=== PATIENT | female | born 1990 | race Caucasian/White ===

== ENCOUNTER → 2022-12-25 13:06 | Outpatient (CLI) | payer BC, SELFPAY ==
--- NOTE | ~2022-12-25 | US_ITS ---
US thyroid INDICATION: Thyroid disorder. TECHNIQUE: Real-time sonographic images of the thyroid gland were obtained. COMPARISON: No prior studies for comparison. FINDINGS: The right thyroid lobe measures 5.5 x 1.7 x 1.5 cm. The left thyroid lobe measures 4.5 x 1 .4 x 1.6 cm. There is normal echotexture and echogenicity throughout the thyroid gland. No discrete n odules identified. Normal vascular flow is present. IMPRESSION: 1. Normal thyroid without discrete nodule or abnormal vascularity. Reviewed, dictated and finalized at location []
== END ==
PROVIDERS: PCP Nurse Practitioner Family; Visit Provider Nurse Practitioner Family
DX: E07.9 Disorder of thyroid, unspecified (principal)
CPT/HCPCS: 76536

== ENCOUNTER 2023-06-22 10:03 | Outpatient (CLI) | payer BC, SELFPAY ==
--- NOTE | ~2023-06-22 | MMUS_ITS ---
EXAMINATION: MM diagnostic alyssa BI w chiquita, US breast RT limited HISTORY: Palpable right breast lump TECHNIQUE: Additional 3-D tomosynthesis images of the breasts were performed and synthetic 2-D images were generated. CAD analysis was submitted and interpreted. High resolution Limited right breast ult rasound was performed. COMPARISON: None BREAST PARENCHYMAL COMPOSITION: Breast composed of scattered areas of fibroglandular density FINDINGS: MAMMOGRAPHIC FINDINGS: There are no suspicious masses, calcifications or architectural distortion in either breast to sugges t malignancy. ULTRASOUND: Limited right breast ultrasound: Normal heterogeneous echotexture without focal solid or cystic mass. IMPRESSION: 1. No evidence for malignancy in either breast. 2. Routine yearly screening mammogram and regular clinical breast examination are recommended. BI-RADS Category 1: Negative Reviewed, dictated and finalized at location A. GER PROCESS IMPROVEMENT IMPRESSION: 1. No evidence for malignancy in either breast. 2. Routine yearly screening mammogram and regular clinical breast examination a re recommended. BI-RADS Category 1: Negative
== END 2023-06-22 10:04 ==
PROVIDERS: PCP Nurse Practitioner Family; Visit Provider Nurse Practitioner Family
DX: N63.12 Unspecified lump in the right breast, upper inner quadrant (principal)
CPT/HCPCS: 76642; 77062; 77066; G0279